=== PATIENT | female | born 1955 | race Caucasian/White ===

== ENCOUNTER 2023-04-02 22:23 | Emergency (ER) | payer OTHER ==
[~2023-04-02] VITALS: Ht 167.6 cm; Wt 59.0 kg
[2023-04-02 22:39] VITALS: BP 168/98
== END 2023-04-03 02:46 | disposition home or self-care (01) ==
LOC: ER 22:23
DX: S81.811A Laceration without foreign body, right lower leg, initial encounter (principal); W22.8XXA Striking against or struck by other objects, initial encounter
CPT/HCPCS: 12032; 90471; 90472; 90715; 99283-25